=== PATIENT | male | born 1990 | race Caucasian/White ===

== ENCOUNTER 2016-09-11 20:11 | Emergency (ER) | payer MEDICARE, MEDICAID ==
[2016-09-11 20:31] VITALS: BP 133/73
[2016-09-12] MEDS ORDERED: CEPHALEXIN MONOHYDRATE 250 MG CAPSULE ONE (00:20)
[2016-09-12] MEDS ORDERED: CEPHALEXIN MONOHYDRATE 250 MG CAPSULE PO ONE (00:21)
[2016-09-12] MEDS ORDERED: ACETAMINOPHEN 500 MG TABLET PO ONE (00:28)
--- NOTE | 2016-09-12 00:28 | ERNOTE ---
Upper Extremity HPI - Narrative Date of Service: 09/12/16 - General Extremities Pain Location: 4th finger: right Time Seen by Provider: 09/12/16 00:22 Source: patient Exam Limitations: no limitations - Immun/Allergies/Home Medications Immunizations: IMMUNIZATION HX Immunizations Up to Date No History of Influenza Vaccine No Hx Pneumococcal Vaccination No Allergies/Adverse Reactions: Allergies Allergy/AdvReac Type Severity Reaction Status Date / Time ciprofloxacin [From Cipro] Allergy Verified 09/11/16 20:32 ciprofloxacin HCl Allergy Verified 09/11/16 20:32 [From Cipro] ziprasidone HCl [From Geodon] Allergy Verified 09/11/16 20:31 ziprasidone mesylate Allergy Verified 09/11/16 20:31 [From Geodon] Home Medications: HOME MEDICATIONS Dextroamphetamine/Amphetamine [Adderall Xr 30 mg Capsule] 30 mg PO DAILY [Last Taken Unknown] Cephalexin Monohydrate [Keflex] 500 mg PO Q8H #21 capsule 09/12/16 [Last Taken Unknown] Naproxen [Naprosyn] 500 mg PO BID PRN #20 tablet 09/12/16 [Last Taken Unknown] - History of Present Illness Narrative: Four day history of right ring finger swelling and pain. There has not been any pus draining form the finger, but has become red an progressively more painful. Denies any pain at the palm, forearm, or with flexion/extension. Denies any puncture wounds. Occurred: other - four days Location of Incident: home Severity: mild Method of Injury: Reports: other - unknown Modifying Factors - (Improves): Reports: rest Modifying Factors - (Worsens): Reports: other - pressure Other Injuries: Reports: none Review of Systems - Review of Systems Constitutional: Present: no symptoms reported EYE: Present: no symptoms reported ENT: Present: no symptoms reported Respiratory: Present: no symptoms reported Cardiology: Present: no symptoms reported Gastrointestinal/Abdominal: Present: no symptoms reported Genitourinary: Present: no symptoms reported Musculoskeletal: Present: See HPI Skin: Present: no symptoms reported Neurological: Present: no symptoms reported Endocrine: Present: no symptoms reported Hematologic/Lymphatic: Present: no symptoms reported Psych: Present: no symptoms reported - Patient's Past Medical History Patient History - Medical: No pertinent hx Patient History - Cardiac/Respiratory: No pertinent hx Patient History - Cancer: No Hx of Cancer Patient History - Other: None - Social History Living Situations: home Smoking Status: Former smoker Have you smoked in the past 12 months: No Do you dip or chew tobacco: No Alcohol Use: occasionally Drug Use: none - Immunizations Immunizations Up to Date: No Hx Pneumococcal Vaccination: No History of Influenza Vaccine: No Physical Exam - Physical Exam General Appearance: Present: no apparent distress Eye Exam: Normal inspection: bilateral Ears, Nose, Throat: Present: normal ENT inspection Neck: Present: normal inspection Respiratory: Present: no respiratory distress Cardiovascular/Chest: Present: regular rate, rhythm Gastrointestinal/Abdominal: Present: nondistended Back Exam: Present: normal inspection Extremity Exam: Present: other - right ring finger that is mildly red at the cuticle. Moderate pain with compression of the pad. No pus could be expressed. No tenderness at the flexer or extensor tendon sheath. 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-XII nml as tested Skin Exam: Present: normal color Lymphatic Exam: Present: no adenopathy ED Progress - Vital Signs Vital Signs: Vital Signs 09/11/16 20:27 Temperature 36.2 C L Pulse Rate 83 Respiratory 18 Rate Blood Pressure 133/73 O2 Sat by Pulse 100 Oximetry - Progress/Reassessment Chief Complaint: Hand Injury/Pain Departure Clinical Impression: Acute paronychia - Departure Disposition: Home self-care Condition: Good Instructions: Paronychia, [id number] Print Language: Sami Referrals: Jennifer Maldonado FNP [Primary Care Provider] - Prescriptions: Cephalexin Monohydrate [Keflex] 500 mg PO Q8H #21 capsule Naproxen [Naprosyn] 500 mg PO BID PRN #20 tablet PRN Reason: Pain
== END 2016-09-12 00:35 | disposition home or self-care (01) ==
LOC: ER 20:11
DX: L03.011 Cellulitis of right finger (principal); Z87.891 Personal history of nicotine dependence